=== PATIENT | male | born 1995 | race Hispanic/Latino ===

== ENCOUNTER 2017-08-30 07:34 | Outpatient (CLI) | payer OTHER | END 2017-08-30 07:35 | disposition home or self-care (01) | LOC: BICULT 07:34 | PROVIDERS: ATTEND Nurse Practitioner | DX: R74.8 Abnormal levels of other serum enzymes (principal); K76.0 Fatty (change of) liver, not elsewhere classified | CPT/HCPCS: 76700 ==

== ENCOUNTER 2017-11-18 07:18 | Day surgery (SDC) | payer OTHER ==
[2017-11-18 07:43] LABS: #Basophils 0.1 thou/uL (0.0-0.2); #Eosinphils 0.3 thou/uL (0.0-0.7); #Lymphocytes 1.7 thou/uL (1.20-3.40); #Monocytes 0.5 thou/uL (0.11-0.59); #Neutrophils 3.8 thou/uL (1.40-6.50); %Basophils 1.3 % (0.0-1.0); %Eosinophils 4.6 % (0.0-10.0); %Lymphocytes 26.5 % (21.0-51.0); %Monocytes 7.2 % (0.0-10.0); %Neutrophils 60.4 % (42.0-75.0); Hemoglobin 14.9 g/dL (14.0-18.0); Mean Corpuscular HGB CONC 33.6 g/dL (32.0-36.0); Mean Corpuscular Hemoglobin 33.1 pg (27.0-31.0); Mean Corpuscular Volume 98.6 fl (80.0-94.0); Mean Platelet Volume 7.4 fL (7.4-10.4); Platelet Count 203 thou/uL (130-400); RBC Distribution Width 12.5 % (11.5-14.5); Red Blood Cell (RBC) Count 4.51 mill/uL (4.70-6.10); White Blood Cell (WBC) Count 6.3 thou/uL (4.8-10.8)
[2017-11-18 07:50] LABS: INR-International Normal Ratio 1.2; PTT 26.6 SEC (22.9-36.1); Prothrombin Time 15.3 SEC (12.0-14.7)
[2017-11-18] MEDS ORDERED: Fentanyl 100 MCG/2 ML VIAL ONE (07:58)
[2017-11-18] MEDS ORDERED: Sodium Bicarbonate 2.5 MEQ/5 ML VIAL ONE (07:58)
[2017-11-18] MEDS ORDERED: Midazolam HCl 2 mg/2 ml Vial ONE (07:58)
[2017-11-18 08:08] LABS: Platelet Count 203 thou/uL (130-400)
[2017-11-18 09:42] VITALS: BMI 31.1
[2017-11-18 09:55] VITALS: TEMP 97.4
[2017-11-18 09:58] VITALS: BP 118/73
--- NOTE | 2017-11-18 15:06 | ULT ---
ULTRASOUND GUIDED LEFT HEPATIC LOBE BIOPSY: Date: 11/18/17 INDICATION: Abnormal LFTs. TECHNIQUE: Informed consent was obtained. Preprocedure ultrasound was performed for biopsy planning purposes onl y. Site overlying the anterior aspect of the left hepatic lobe was marked. The site was prepped in th e usual sterile fashion. The patient underwent conscious sedation under the guidance of the radiology nurse, receiving 50 mcg of IV Fentanyl and 1 mg of IV Versed. The site was prepped and draped in the usual sterile fashion. Buffered 1% lidocaine was administered to overlying subcutaneous tissues, mus chris, and peritoneal lining overlying the left hepatic lobe. A small incision was made. A 17 gauge tro car needle was guided down into the anterior aspect of the left hepatic lobe. An 18 gauge core biopsy gun was guided into the trocar needle. One sample measuring 2.2 cm was obtained of the left hepatic lobe following the patient taking a deep inspiration. The specimen was considered adequate upon deliv ering the specimen into a Formalin cup. The trocar needle was removed. Postprocedure images demonstra te a small amount of gas along the postprocedure biopsy track without significant intraparenchymal he matoma. The patient tolerated the biopsy without difficulty. Pressure was held at the biopsy site unt il hemostasis was obtained. IMPRESSION: Successful ultrasound guided nonfocal left hepatic lobe liver biopsy. POS: ERIN
== END 2017-11-18 10:30 | disposition home or self-care (01) ==
LOC: ULT 07:18
PROVIDERS: ATTEND Internal Medicine Gastroenterology
PROC: 0FB23ZX Excision of Left Lobe Liver, Percutaneous Approach, Diagnostic (ICD-10-PCS; principal; 2017-11-18)
DX: K75.81 Nonalcoholic steatohepatitis (NASH) (principal)
CPT/HCPCS: 36415; 47000; 76942; 85025; 85576; 85610; 85730; 88307; 88313; J2250; J3010